=== PATIENT | male | born 1950 | race Caucasian/White ===

== ENCOUNTER 2025-02-09 11:34 | Outpatient (CLI) | payer MEDICARE, SELFPAY ==
--- NOTE | ~2025-02-09 | XR_ITS ---
EXAMINATION: XR chest 2V 02/09/2025 12:46 INDICATION: Benign neoplasm of the colon. PROCEDURE: 2 view chest COMPARISON: No prior studies for comparison. FINDINGS: The lungs are clear. The cardiomediastinal silhouette is within normal limits. There are no pleural effusions. There is no pneumothorax suspected. IMPRESSION: 1: NO ACUTE CARDIOPULMONARY DISEASE. Reviewed, dictated and finalized at location O. [facility] NURSE PRACTITIONER
--- OUTSIDE RECORDS SUMMARY | 2025-02-09 12:19 | XMS_ITS | Clinical Summary ---
Author Organization [facility] Address [address] [place] [address] Care Team Providers Care Information Services Assistant Name Role Phone Fabiano Trejo MD Primary Care Prov ider Allergies No known active allergies Medications atorvastatin (LIPITOR) 40 MG tabletIndications:M ixed hyperlipidemia TAKE 1 TABLET(40 MG) BY MOUTH EVERY NIGHT AT BEDTIME 30 tablet 2 5 Active JARDIANCE 25 MG tabletIndications:T ype 2 diabetes mellitus without complication, without long-term current use of insulin ([facility]) TAKE 1 TABLET(25 MG) BY MOUTH DAILY 30 tablet 3 5 Active Active Problems Problem Noted Date Diagnosed Date Rectal bleeding 08/21/2024 Hx of adenomatous colonic polyps 08/21/2024 Encounters Date Type Department Care Team Description 12/09/2024 3:20 PM CDT Office Visit [facility] Family Medicine [address], [address] [place] [address] Fabiano Trejo MD Follow Up (Pt presents to office for 3 month f/u ) 12/09/2024 Travel from Last 3 Months Immunizations Immunization Administration Dates Next Due Pneumococcal (Prevnar 20) 08/12/2024 Tdap (Generic) 06/23/2014 Family History Medical History Relation Comments Diabetes Brother Hypertension Brother Cancer Father Hypertension Father Diabetes Maternal Aunt Diabetes Maternal Grandfather Diabetes Maternal Grandmother Diabetes Maternal Uncle Diabetes Sister Relation Status Comments Brother Father Maternal Aunt Maternal Grandfather Maternal Grandmother Maternal Uncle Sister Social History Tobacco Use Types Packs/Day Years Used Date Smoking Tobacco: Never Passive Smoke Exposure: Never Smokeless Tobacco: Never Tobacco Cessation:Counseling Given: No Alcohol Use Standard Drinks/Week Comments Never 0 (1 standard drink = 0.6 oz pur e alcohol) PHQ-2 Answer Date Recorded Patient Health Questionnaire-2 Score 0 08/21/2024 Sex and Gender Information Value Date Recorded Sex Assigned at Male 08/12/2024 7:00 AM CDT Legal Sex Male 7:56 PM CDT Gender Identity Male 08/21/2024 10:35 AM CDT Sexual Orientation Not on file Last Filed Vital Signs Vital Sign Reading Time Taken Comments Blood Pressure 148/82 12/09/2024 4:29 PM CDT Pulse 71 12/09/2024 3:07 PM CDT Temperature 36.3 C (97.3 F) 12/09/2024 3:07 PM CDT Respiratory Rate 18 12/09/2024 3:07 PM CDT Oxygen Saturation 93% 12/09/2024 3:07 PM CDT Inhaled Oxygen Concentration - - Weight 100 kg (220 lb 6.4 oz) 12/09/2024 3:07 PM CDT Height 177.8 cm (5' 10) 12/09/2024 3:07 PM CDT Body Mass Index 31.62 12/09/2024 3:07 PM CDT Plan of Treatment Upcoming Encounters Date Type Department Care Team (Late st Contact Info) Description 07/09/2025 8:00 AM CDT Office Visit [facility] Family Medicine - [address], [address] [place] [address] [phone] Kumar VII, Fabiano Tyler MD [address] [place] [address], [address] [address] Health Maintenance Due Date Last Done Comments Hepatitis C 1970 Zoster Vaccines (1 of 2) 2002 RSV Immunization or 60+ Years (1 - Risk 60-74 years 1-dose series) 2012 Annual Medicare Wellness Visit 2017 DTaP, Tdap and Td Vaccines ( 2 - Td or Tdap) 06/23/2024 06/23/2014 COVID-19 Vaccine (2024-2 6 season) 2024 Influenza Adult (#1) 2024 Hemoglobin A1C 06/09/2025 12/09/2024, 07/08/2024 Kidney Health Evaluation 08/12/2025 08/12/2024 Lipid Panel 10/29/2025 10/29/2024, 07/08/2024 Diabetes: Retinopathy Eye Exam 09/08/2026 09/08/2024 Colorectal Cancer Screening Colonoscopy (10 Years) 09/23/2034 09/23/2024 Pneumococcal Vaccine: 50+ Years Completed 08/12/2024 PHQ-2 (Physician [place]) Completed 08/21/2024 Hepatitis A Vaccines Aged Out No long er eligible based on patient's age to complete this topic Meningococcal B Vaccine Aged Out No l onger eligible based on patient's age to complete this topic Meningococcal Vaccine Aged Out No daniella keaton eligible based on patient's age to complete this topic RSV Immunizations Under 20 Months Aged Out No longer eligible b ased on patient's age to complete this topic Procedures Procedure Name Priority Date/Time Associated Diagnosis Comments COLLECT.CAPILLARY (FNGR,HEEL,EAR) Routine 12/09/2024 3:00 PM CDT Type 2 diabetes mellitus with diabetic microalbuminuria, without long-term current use of insulin ([facility]) HEMOGLOBIN, GLYCOSYLATED Routine 12/09/2024 Type 2 diabetes mellitus with diabetic microalbuminuria, without long-term current use of insulin ([facility]) LIPID PANEL Routine 10/29/2024 1:28 PM CDT DIABETIC RETINOPATHY EXAM (NEGATIVE)(SCAN ORDER) Routine 09/08/2024 from Last 3 Months or Most Recently Relevant to Health Maintenance Results * HEMOGLOBIN, GLYCOSYLATED (12/09/2024) HGB A1C 6.4 % KEYUR ALFORD 12/09/2024 us Fabiano MALDONADO MD LABORATORY Fi nal Result [facility] [address] [address], * LIPID PANEL (10/29/2024 1:28 PM CDT) CHOLESTEROL 124 <200 mg/dL [facility] HDL 44 > OR = 40 mg/dL [facility] TRIGLYCERIDES 137 <150 mg/dL [facility] LDL (CALCULATED) 58 mg/dL (calc) [facility] Comment: Reference range: <100 Desirable range <100 mg/dL for primary prevention; <70 mg/dL for patients with CHD or diabetic patients with > or = 2 CHD risk factors. LDL-C is now calculated using the Miesha calculation, which is a validated novel method providing better accuracy than the Friedewald equation in the estimation of LDL-C. Jose LING et al. CHEN. 2013;310(19): 2050-1726 (http://education.Domob/faq/SOB487) CHOL/HDL RATIO 2.8 <5.0 (calc) [facility] NON HDL CHOLESTEROL 80 <130 mg/dL (calc) [facility] Comment: For patients with diabetes plus 1 major ASCVD risk factor, treating to a non-HDL-C goal of <100 mg/dL (LDL-C of <70 mg/dL) is considered a therapeutic option. 10/29/2024 1:28 PM CDT 10/29/2024 1:29 PM CDT Narrative [facility] HUSEYIN WOOTEN - 10/30/2024 4:56 AM CDT FASTING:YES FASTING: YES Resulting Agency Comment Performing Organization Information: Site ID: [place] Name: [employer] Address: [address] [id number] Director: Cezar De La Garza MD us Fabiano MALDONADO MD LABORATORY Fi nal Result [facility]ONTANE[facility] - RAUL SUGAR [facility] [address] [place] [address], [place] * DIABETIC RETINOPATHY EXAM (NEGATIVE) (09/08/2024) us Doc [facility] Scanned SCANNING Final Resu lt [facility] ONBASE from Last 3 Months or Most Recently Relevant to Health Maintenance Insurance [employer] MEDICARE Care Teams Information Services Assistant Relationship Specialty Start Date End Date Kumar VIIFabiano MD [address] [place] [address] [phone] PCP - General FAMILY PRACTICE 07/08/24
--- NOTE | 2025-02-09 12:22 | ECG_ITS ---
Test Date: 2025-02-09 12:36:03 Measurements Intervals [place] Rate: 55 P: 26 [place]: 148 QRS: -2 QRSD: 109 T: 15 QT: 395 QTc: 380 Interpretive Statements SINUS BRADYCARDIA INCOMPLETE RIGHT BUNDLE BRANCH BLOCK DELAYED PRECORDIAL R/S TRANSITION BASELINE ARTIFACT- V6 BORDERLINE ECG No previous ECG available for comparison Electronically Signed On 02-09-2025 19:04:16 TEST CENTER ADMINISTRATOR by Stanislaw Bond D.O.
[2025-02-09 12:51] LABS: Hematocrit 48.9 % (42.0-52.0); Hemoglobin 16.7 g/dL (14.0-18.0); Immature Granulocyte Percent A 0.6 % (0-0.5); Lymphocytes Absolute Auto 2.48 K/mm3 (0.9-3.2); Mean Corpuscular HGB Conc 34.2 g/dl (32-36); Mean Corpuscular Hemoglobin 32.0 pg (26-34); Mean Corpuscular Volume 93.7 fl (80-100); Nucleated Red Blood Cells Absolute Auto 0.000 K/mm3 (0.0-0.012); Nucleated Red Blood Cells Perc 0.0 % (0.0-0.2); Platelet Count Result 179 k/mm3 (150-375); Red Blood Count 5.22 M/mm3 (4.6-6.20); White Blood Count 7.2 K/mm3 (4.5-10.0)
[2025-02-09 13:02] LABS: INR 1.0; Prothrombin Time 13.5 Seconds (11.1-14.7)
[2025-02-09 13:03] LABS: Partial Thromboplastin Time 32.0 Seconds (22.3-36.8)
[2025-02-09 13:12] LABS: Alanine Aminotransferase 25 U/L (6-50); Albumin Level 4.5 g/dL (3.5-5.1); Alkaline Phosphatase 95 U/L (38-126); Anion Gap 9 mmol/L (4-12); Aspartate Amino Transferase 32 U/L (17-59); Bilirubin,Total 1.0 mg/dL (0.2-1.3); Blood Urea Nitrogen 12 mg/dL (9-20); Calcium 9.7 mg/dL (8.4-10.2); Carbon Dioxide 24 mmol/L (22-30); Chloride 108 mmol/L (98-107); Estimated Glomerular Filt Rate > 60; Glucose 114 mg/dL (65-110); Potassium 4.0 mmol/L (3.4-5.0); Sodium 141 mmol/L (137-145); Total Protein 8.2 g/dL (6.3-8.2)
[2025-02-09 13:48] LABS: Carcinoembryonic Antigen 5.3 ng/mL (0.0-3.0)
== END 2025-02-09 11:35 | disposition home or self-care (01) ==
LOC: ANHSURGERY 11:39
PROVIDERS: PCP Family Medicine; Visit Provider Surgery
DX: Z01.818 Encounter for other preprocedural examination (principal); R94.31 Abnormal electrocardiogram [ECG] [EKG]; D12.6 Benign neoplasm of colon, unspecified
CPT/HCPCS: 36415; 71046; 80053; 82378; 85025; 85610; 85730; 86850; 86900; 86901; 93005